=== PATIENT | male | born 1955 | race Caucasian/White ===

== ENCOUNTER 2016-07-25 06:36 | Day surgery (SDC) | payer BC, OTHER ==
[2016-07-10 08:12] VITALS: BMI 37.0
--- NOTE | 2016-07-10 08:34 | PAT Medication Instructions ---
Service Date Jul 10, 2016. Current Home Medication List Aspirin (Aspirin Chewable), 81 MG PO QAM Atenolol (Tenormin), 50 MG PO QAM Fish Oil (Raphine-3), 1 CAP PO QAM Multivitamin (Multivitamin), 1 TAB PO QAM Vitamin E (Vitamin E 400 Iu), Unknown Dose PO QAM Medication Instructions For Your Scheduled Surgery - Hold the following medications as of 07/10/16: Fish Oil (Raphine-3), 1 CAP PO QAM Vitamin E (Vitamin E 400 Iu), Unknown Dose PO QAM - Hold the following medications the morning of surgery: Multivitamin (Multivitamin), 1 TAB PO QAM - Take the following medications the morning of surgery with a sip of water OTHERWISE NOTHING TO EAT OR DRINK AFTER MIDNIGHT: Aspirin (Aspirin Chewable), 81 MG PO QAM Atenolol (Tenormin), 50 MG PO QAM If you have any questions please call us at [phone] or [phone] or [phone]
--- NOTE | 2016-07-10 09:09 | DIAGNOSTIC IMAGING REPORT ---
CHEST PREADMISSION(PA/LAT) CLINICAL HISTORY: Preoperative evaluation. COMPARISON STUDY: Chest radiograph January 27, 2013. FINDINGS: Lung volumes are mildly diminished. This is unchanged. No pneumothorax or pleural effusion is present. There is no evidence for pulmonary edema. There is mild cardiomegaly. IMPRESSION: 1. No acute findings. 2. Stable mild cardiomegaly. Electronically signed by: Aime Schroeder M.D. 07/10/2016 9:07 AM Dictated Date/Time: 07/10/2016 9:05 AM
[2016-07-10 09:18] LABS: HEMATOCRIT 47.8 % (42-52); MEAN CELL VOLUME 84.9 fL (80-100); MEAN CORPUSCULAR HEMOGLOBIN 29.5 pg (25-34); MEAN CORPUSCULAR HGB CONC 34.7 g/dl (32-36); MEAN PLATELET VOLUME 9.6 fL (7.4-10.4); PLATELET COUNT 195 K/uL (130-400); RED BLOOD COUNT 5.63 M/uL (4.7-6.1); WHITE BLOOD COUNT 9.32 K/uL (4.8-10.8)
[2016-07-10 09:19] LABS: BASO % 0.5 %; BASO ABS # 0.05 K/uL (0-0.2); COMPLETE YES; EOS % 4.3 %; IG% 0.3 %; LYMPH % 37.4 %; LYMPH ABS # 3.49 K/uL (1.2-3.4); MONO % 8.5 %
[2016-07-10 09:54] LABS: BUN/CREATININE RATIO 25.1 (10-20); CALCIUM 9.5 mg/dl (8.5-10.1); CREATININE 0.88 mg/dl (0.60-1.40); POTASSIUM 4.4 mmol/L (3.5-5.1)
[~2016-07-25] VITALS: Ht 172.7 cm; Wt 111.2 kg
[~2016-07-25 06:36] MED LIST: ASPCH81X PO; ATEN50TA8 PO; LACTATED RINGER'S 1000ML 1,000 ML IV SCH; MULT-506 PO; OMEG10007 PO; VITA400C3 PO
[2016-07-25 06:57] VITALS: BP 164/86; PULSE 60; TEMP 37.1; O2SAT 95; Ht 172.7 cm; Wt 111.2 kg
[2016-07-25] MEDS ORDERED: BUPIVACAINE/EPINEPHRINE 0.5% MPF 1:200,000 30 ML VIAL ONE (07:33)
[2016-07-25] MEDS ORDERED: ROCURONIUM BROMIDE 10 MG/ML 5 ML VIAL ONE (07:39)
[2016-07-25] MEDS ORDERED: DEXAMETHASONE SOD INJ 4 MG/ML VIAL ONE (07:39)
[2016-07-25] MEDS ORDERED: PROPOFOL IV EMULSION 10 MG/ML 20 ML VIAL IV ONE (07:39)
[2016-07-25] MEDS ORDERED: ONDANSETRON INJ 2 MG/ML 2 ML VIAL ONE ×2 (07:39→10:06)
[2016-07-25] MEDS ORDERED: LIDOCAINE HCL 2% 2 ML VIAL (20MG/ML) ONE (07:39)
[2016-07-25] MEDS ORDERED: MIDAZOLAM HCL 1 MG/ML 2ML VIAL ONE (07:40)
[2016-07-25] MEDS ORDERED: FENTANYL CITRATE INJ 50 MCG/1 ML 2 ML VIAL ONE (07:40)
--- NOTE | 2016-07-25 08:21 | History & Physical Bridge Note ---
H&P Re-Evaluation Bridge Note: I have examined the patient, reviewed the History & Physical and in the interval since the performance of the History & Physical I have noted the following changes of clinical significance: No changes noted pt marked SO at bedside
[2016-07-25] MEDS ORDERED: ATROPINE SULFATE 0.1 MG/ML 5ML SYR IV PRN (08:30)
[2016-07-25] MEDS ORDERED: LABETALOL HCL IV 5 MG/ML 20ML IV PRN (08:30)
[2016-07-25] MEDS ORDERED: KETOROLAC TROMETHAMINE 30 MG/ML VIAL IV. PRN (08:30)
[2016-07-25] MEDS ORDERED: ONDANSETRON INJ 2 MG/ML 2 ML VIAL IV PRN ×2 (08:30→09:45)
[2016-07-25] MEDS ORDERED: FENTANYL CITRATE INJ 50 MCG/1 ML 2 ML VIAL IV PRN (08:30)
[2016-07-25] MEDS ORDERED: KETOROLAC TROMETHAMINE 30 MG/ML VIAL ONE (09:21)
[2016-07-25] MEDS ORDERED: BACITRACIN 50,000 UNITS IR ONE (09:29)
--- NOTE | 2016-07-25 09:31 | [facility] Post Operative Brief Note ---
Immediate Operative Summary Operative Date Jul 25, 2016. Pre-Operative Diagnosis Recurrent Incarcerated Supraumbilical Hernia Post-Operative Diagnosis Recurrent Incarcerated Supraumbilical Hernia Procedure(s) Performed Repair Recurrent Incarcerated Supraumbilical Hernia with Mesh( 8 cm c-qur) Surgeon Dr. Garcia Lean Manager Surgeon(s) NAVEEN Quiroga Estimated Blood Loss 3 ml Findings rec incarcerated supraumbilical hernia defect regina 3 cm Specimens none per surgeon
[2016-07-25] MEDS ORDERED: OXYC-57 PO (09:36)
[2016-07-25] MEDS ORDERED: LACTATED RINGER'S 1000ML 1,000 ML IV SCH (09:38)
--- NOTE | 2016-07-25 09:38 | Discharge Instructions ---
Discharge Instructions Visit Reason for Visit: Recurrent Incarcerated Supraumbilical Hernia Discharge Discharge Diagnosis / Problem: Repair of hernia with mesh Activity Recommendations Activity Limitations: as noted below Lifting Limitations: no more than 10 pounds Shower/Bathe: tomorrow Driving or Machine Use: resume 3 days after discharge (if not taking Percocet) Anesthesia . Post Anesthesia Instructions: If you have had General Anesthesia or IV Sedation: * Do not drive today. * Resume driving when surgeon permits. * Do not make important decisions or sign legal documents today. * Call surgeon for: 1. Temperature elevations greater than 101 degrees F. 2. Uncontrollable pain. 3. Excessive bleeding. 4. Persistent nausea and vomiting. 5. Medication intolerance (nausea, vomiting or rash). * For nausea and vomiting use only clear liquids such as: tea, soda, bouillon until nausea subsides, then gradually increase diet as tolerated. * If you have any concerns or questions, call your surgeon's office. If physician is unavailable and it is an emergency, call 911 or go to the nearest emergency room. . Instructions / Follow-Up Instructions / Follow-Up Dr. Garcia in 1 week, call [phone] if you do not already have an appt Diet Recommendations Recommended Home Diet: no limitations Procedures Procedures Performed: Repair Recurrent Incarcerated Supraumbilical Hernia with Mesh( 8 cm c-qur) Pending Studies Studies pending at discharge: no Medical Emergencies . Who to Call and When: Medical Emergencies: If at any time you feel your situation is an emergency, please call 911 immediately. . Non-Emergent Contact Non-Emergency issues call your: Surgeon Call Non-Emergent contact if: you have a fever, temperature is above 101.5, your pain is not controlled, wound has increased redness . . "Provider Documentation" section prepared by Chaitanya Rosas.
[2016-07-25] MEDS ORDERED: OXYCODONE/ACETAMINOPHEN 5-325 TAB PO PRN (09:45)
[2016-07-25] MEDS ORDERED: MoRPHine SULFATE 2 MG/ML CARP IV PRN (09:45)
[2016-07-25 10:30] VITALS: BP 106/61; PULSE 49; TEMP 36.6; O2SAT 94
--- NOTE | 2016-07-25 10:56 | Anesthesiology Progress Note ---
Anesthesia Post Op Note Date & Time Jul 25, 2016 at 10:56 Vital Signs Pain Intensity: 0 Vital Signs Past 12 Hours Date Time Temp Pulse Resp B/P Pulse Ox O2 Delivery O2 Flow Rate FiO2 07/25/16 10:30 36.6 49 16 106/61 94 Room Air 10 07/25/16 10:15 36.7 47 13 97/55 95 Room Air 07/25/16 10:05 49 13 95/57 95 Room Air 07/25/16 09:55 52 13 105/61 98 Mask 10 07/25/16 09:45 54 18 120/64 98 Mask 10 07/25/16 09:37 36.4 62 14 109/59 99 Mask 10 07/25/16 06:57 37.1 60 20 164/86 95 Room Air Notes Mental Status: alert / awake / arousable, participated in evaluation Pt Amnestic to Procedure: Yes Nausea / Vomiting: adequately controlled Pain: adequately controlled Airway Patency, RR, SpO2: stable & adequate BP & HR: stable & adequate Hydration State: stable & adequate Anesthetic Complications: no major complications apparent
[2016-07-25 10:58] VITALS: BP 104/63; PULSE 50; TEMP 36.5; O2SAT 94
[2016-07-25] MEDS ORDERED: CEFAZOLIN SOD 1 GM VIAL ONE (11:16)
--- NOTE | 2016-07-25 18:57 | OPERATIVE REPORT ---
DATE OF OPERATION: 07/25/2016 SURGEON: Dr. Garcia. REGISTRY NURSE: Jian Rosas PA-C. PREOPERATIVE DIAGNOSIS: Recurrent incarcerated supraumbilical hernia. POSTOPERATIVE DIAGNOSIS: Same with defect approximately 3 cm. PROCEDURE: Open repair of recurrent supraumbilical incarcerated hernia with 8-cm C-qur mesh placement. SUMMARY: The patient was brought into the operating theater and the abdomen was prepped with Betadine scrub solution and properly draped. The patient had tangerine size bulge in the supraumbilical area above the transverse incision that apparently had been made as an open laparoscopy to do a gangrenous gallbladder. At that time, the patient had a hernia apparently by the operative report of this surgeon with no mesh was placed due to the infections of gallbladder. That is why, I elected to make a midline incision starting at the edge of the transverse incision supraumbilically, going up cephalad. We made an incision approximately 3 inches long, deepened through subcutaneous tissue, where we met with some fatty tissues in the subcutaneous area and we circumferentially dissected it out all the way around to where we were onto the abdominal wall to delineate the defect itself and what we found was once we had this freed up that the patient had an actual defect in the midline above the umbilical area, which was about 3 cm. I undermined that after we returned all the fatty tissue preperitoneal with a finger and palpated cephalad and caudad, could not feel any other weaknesses in the abdominal wall. At this point, I elected to bring an 8-cm C-qur mesh ring site and placed it preperitoneally, attached that to the defect itself with 2-0 nylon suture interruptedly and at this point, we circumferentially did not close the defect itself. We attached it onto the edge of the mesh with interrupted 2-0 nylon suture. The repair appeared to be solid. We closed the subcutaneous tissue with 2-0 Vicryl and neda for skin edges. Dressing was applied. The procedure was tolerated well by the patient. Estimated blood loss approximately 3 mL. The patient was taken to the recovery room in good condition. I attest to the content of the Intraoperative Record and any orders documented therein. Any exceptio ns are noted below.
== END 2016-07-25 11:30 | disposition home or self-care (01) ==
LOC: C.ACU 06:36
PROVIDERS: ATTEND Surgery
DX: K42.0 Umbilical hernia with obstruction, without gangrene (principal); I10 Essential (primary) hypertension; E78.00 Pure hypercholesterolemia, unspecified; G56.02 Carpal tunnel syndrome, left upper limb; G56.22 Lesion of ulnar nerve, left upper limb; Z80.9 Family history of malignant neoplasm, unspecified; Z82.49 Family history of ischemic heart disease and other diseases of the circulatory system; Z83.3 Family history of diabetes mellitus; K44.9 Diaphragmatic hernia without obstruction or gangrene; E78.5 Hyperlipidemia, unspecified; G47.33 Obstructive sleep apnea (adult) (pediatric); R00.1 Bradycardia, unspecified; E66.9 Obesity, unspecified

== ENCOUNTER → 2017-05-17 | Outpatient (CLI) | payer BC ==
[~2017-05-17] MED LIST changes: -LACTATED RINGER'S 1000ML 1,000 ML IV SCH
== END | disposition home or self-care (01) ==
LOC: C.LABSPEC 14:33
PROVIDERS: ATTEND Internal Medicine
DX: Z12.11 Encounter for screening for malignant neoplasm of colon (principal)

== ENCOUNTER → 2017-10-23 | Outpatient (CLI) | payer BC ==
[2017-10-23 12:34] LABS: BASO % 0.5 %; BASO ABS # 0.04 K/uL (0-0.2); EOS % 2.5 %; EOS ABS # 0.19 K/uL (0-0.5); HEMATOCRIT 45.3 % (42-52); HEMOGLOBIN 15.3 g/dL (14.0-18.0); IG# 0.02 K/uL (0.00-0.02); LYMPH % 32.8 %; LYMPH ABS # 2.49 K/uL (1.2-3.4); MEAN CELL VOLUME 86.3 fL (80-100); MEAN CORPUSCULAR HEMOGLOBIN 29.1 pg (25-34); MEAN CORPUSCULAR HGB CONC 33.8 g/dl (32-36); MEAN PLATELET VOLUME 9.7 fL (7.4-10.4); MONO % 9.8 %; MONO ABS # 0.74 K/uL (0.11-0.59); NEUT % 54.1 %; PLATELET COUNT 224 K/uL (130-400); RED CELL DISTRIBUTION WIDTH CV 13.2 % (11.5-14.5); RED CELL DISTRIBUTION WIDTH SD 41.5 fL (36.4-46.3); WHITE BLOOD COUNT 7.58 K/uL (4.8-10.8)
[2017-10-23 13:19] LABS: ALBUMIN 3.6 gm/dl (3.4-5.0); BLOOD UREA NITROGEN 20 mg/dl (7-18); CALCIUM 8.6 mg/dl (8.5-10.1); CARBON DIOXIDE 24 mmol/L (21-32); GLUCOSE 103 mg/dl (70-99); POTASSIUM 4.2 mmol/L (3.5-5.1); SODIUM 139 mmol/L (136-145)
[2017-10-23 13:34] LABS: ALKALINE PHOSPHATASE 92 U/L (45-117); ALT/SGPT 46 U/L (12-78); AST/SGOT 40 U/L (15-37); CHOLESTEROL 144 mg/dl (0-200); LDL CHOLESTEROL (DIRECT) 91 mg/dl
== END | disposition home or self-care (01) ==
LOC: C.LABSPEC 12:19
PROVIDERS: ATTEND Internal Medicine
DX: I10 Essential (primary) hypertension (principal); R63.4 Abnormal weight loss; E78.5 Hyperlipidemia, unspecified

== ENCOUNTER → 2018-01-05 | Outpatient (CLI) | payer BC ==
[~2018-01-05] MED LIST changes: -VITA400C3 PO; +VITACAP37 PO
== END | disposition home or self-care (01) ==
LOC: C.LABSPEC 13:37
PROVIDERS: ATTEND Internal Medicine
DX: N39.0 Urinary tract infection, site not specified (principal)